=== PATIENT | male | born 1995 | race Caucasian/White ===

== ENCOUNTER → 2017-01-23 | Outpatient (CLI) | payer OTHER ==
[~2017-01-23] MED LIST: CLAR10CA3 PO; MUCI600T34 PO
--- NOTE | 2017-01-23 09:05 | REP ---
Chest two views HISTORY: Pneumothorax Comparison: 10/04/2016 The lungs are clear. The heart is normal in size. The pulmonary vasculature is normal in appearance. The bony structure is intact. IMPRESSION: No acute disease. Signed by Dean Zuniga MD 01/23/2017 08:56 A
== END ==
LOC: M SMT 08:35
PROVIDERS: ATTEND Thoracic Surgery (Cardiothoracic Vascular Surgery)
DX: J93.0 Spontaneous tension pneumothorax (principal)